=== PATIENT | male | born 1990 | race Caucasian/White ===

== ENCOUNTER 2020-08-20 23:31 | Emergency (ER) | payer OTHER ==
[~2020-08-20] VITALS: Ht 172.7 cm; Wt 90.7 kg
[2020-08-20 23:37] VITALS: Ht 172.7 cm; Wt 90.7 kg
[2020-08-20 23:59] VITALS: BP 154/84
== END 2020-08-21 00:01 ==
LOC: ED 23:31
DX: Z02.89 Encounter for other administrative examinations (principal)